=== PATIENT | female | born 1945 | race Caucasian/White ===

== ENCOUNTER 2017-05-14 20:21 | Emergency (ER) | payer MEDICARE, OTHER ==
[~2017-05-14] VITALS: Ht 157.5 cm; Wt 88.2 kg
[~2017-05-14 20:21] MED LIST: ACTONEL150 MG; ACTONEL150 MG PO; ACTONEL35 MG PO; ALENDRONATE SOD70 MG PO; BENADRYL25 MG PO; BENICAR HCT 401 EACH PO; CALCIUM CITRAT1 EAC8 PO; CEPHALEXIN500 MG PO; CLINDAMYCIN HC150 MG PO; DEPAKOTE500 MG PO; DIVALPROEX SOD500 M1 PO; ESTRADIOL0.5 MG VAGINAL; FIBER THERAPY1368 GM PO; FLUPHENAZINE HC10 MG PO; GLUCOPHAGE500 MG PO; INVEGA6 MG PO; METFORMIN HCL500 M1 PO; MOTRIN IB200 MG PO; NORCO 5-325 TA1 EACH PO; PALIPERIDONE ER6 MG PO; PRAVACHOL20 MG PO; PROPRANOLOL HCL10 MG PO; RISPERDAL1 MG PO; TRAMADOL HCL50 MG; TRAMADOL HCL50 MG PO; TYLENOL EXTRA500 MG PO; VITAMIN B12-FO1 EACH PO
[2017-05-14] MEDS ORDERED: OLMESARTAN-HCT1 EAC1 PO (20:37)
[2017-05-14] MEDS ORDERED: ALLOPURINOL300 MG PO (20:38)
== END 2017-05-15 01:24 | disposition home or self-care (01) ==
LOC: ED 20:21
DX: R51 Headache (principal); I10 Essential (primary) hypertension; E11.9 Type 2 diabetes mellitus without complications; F31.9 Bipolar disorder, unspecified; M50.30 Other cervical disc degeneration, unspecified cervical region; Z88.5 Allergy status to narcotic agent; Z88.8 Allergy status to other drugs, medicaments and biological substances; Z90.710 Acquired absence of both cervix and uterus; Z79.899 Other long term (current) drug therapy; Z79.84 Long term (current) use of oral hypoglycemic drugs; W18.30XA Fall on same level, unspecified, initial encounter; Y93.A1 Activity, exercise machines primarily for cardiorespiratory conditioning
CPT/HCPCS: 70450; 72125; 99284

== ENCOUNTER 2017-07-12 12:23 | Emergency (ER) | payer MEDICARE, OTHER ==
[~2017-07-12] VITALS: Ht 157.5 cm; Wt 88.2 kg
[~2017-07-12 12:23] MED LIST changes: +ALLOPURINOL300 MG PO; +OLMESARTAN-HCT1 EAC1 PO
== END 2017-07-12 14:18 | disposition home or self-care (01) ==
LOC: ED 12:23
DX: S93.402A Sprain of unspecified ligament of left ankle, initial encounter (principal); S83.92XA Sprain of unspecified site of left knee, initial encounter; F31.9 Bipolar disorder, unspecified; I10 Essential (primary) hypertension; E11.9 Type 2 diabetes mellitus without complications; Z88.5 Allergy status to narcotic agent; Z88.8 Allergy status to other drugs, medicaments and biological substances; Z79.899 Other long term (current) drug therapy; W01.0XXA Fall on same level from slipping, tripping and stumbling without subsequent striking against object, initial encounter
CPT/HCPCS: 73560; 73610; 99283

== ENCOUNTER 2017-07-14 14:33 | Emergency (ER) | payer MEDICARE, OTHER ==
[~2017-07-14] VITALS: Ht 157.5 cm; Wt 87.1 kg
== END 2017-07-14 17:49 | disposition home or self-care (01) ==
LOC: ED 14:33
DX: S16.1XXA Strain of muscle, fascia and tendon at neck level, initial encounter (principal); S00.93XA Contusion of unspecified part of head, initial encounter; I10 Essential (primary) hypertension; E11.9 Type 2 diabetes mellitus without complications; F31.9 Bipolar disorder, unspecified; Z90.710 Acquired absence of both cervix and uterus; Z88.5 Allergy status to narcotic agent; Z88.8 Allergy status to other drugs, medicaments and biological substances; Z79.899 Other long term (current) drug therapy; Z79.84 Long term (current) use of oral hypoglycemic drugs; W01.0XXA Fall on same level from slipping, tripping and stumbling without subsequent striking against object, initial encounter
CPT/HCPCS: 99282

== ENCOUNTER 2017-07-19 06:24 | Emergency (ER) | payer MEDICARE, OTHER ==
[~2017-07-19] VITALS: Ht 157.5 cm; Wt 87.1 kg
== END 2017-07-19 07:52 | disposition home or self-care (01) ==
LOC: ED 06:24
DX: S80.212A Abrasion, left knee, initial encounter (principal); M19.071 Primary osteoarthritis, right ankle and foot; I10 Essential (primary) hypertension; E11.9 Type 2 diabetes mellitus without complications; Z88.5 Allergy status to narcotic agent; Z88.8 Allergy status to other drugs, medicaments and biological substances; Z79.84 Long term (current) use of oral hypoglycemic drugs; Z79.899 Other long term (current) drug therapy; X58.XXXA Exposure to other specified factors, initial encounter
CPT/HCPCS: 73610; 99283

== ENCOUNTER 2019-07-07 16:50 | Emergency (ER) | payer MEDICARE, MEDICAID ==
[~2019-07-07] VITALS: Ht 157.5 cm; Wt 87.1 kg
[~2019-07-07 16:50] MED LIST changes: +ACETAMINOPHEN500 MG PO; +AMLODIPINE BESYL5 MG PO; +CITRUS CALCIUM +1 EA PO; +FIBER500 MG PO; +MELATONIN1 MG PO; +VITAMIN B122500 MC1 PO; +VITAMIN D-32000 UNIT PO
--- OUTSIDE RECORDS SUMMARY | 2019-07-07 16:52 | XMS ---
PreManage Notification: TRISTAN BLOOM Security Environmental Planner Events No recent Security Events currently on file CRITERIA MET - Group Notification - [facility] CARE PROVIDERS TYLER ROSE Internal Medicine 12/22/2018-Current PHONE: Unknown DR TYLER ROSE Primary Care Current PHONE: [phone] Zeeshan Galvin MD Primary Care Current PHONE: [phone] [facility]: 12/22/2018 Care Coordination: Mental health services are being provided by [facility].\T\nbsp; Please contact [facility] with mental health concerns.\T\nbsp; Regina/Rell Lockhart: \T\nbsp; Vishnu: [phone]. Care History Medical/Surgical 12/22/2018 [facility] - Patient is currently established with [facility]. If patient is seen in the ED during business hours. Please contact CHWs at [facility]. Care Recommendation: This patient has had 5 or more Emergency Department visits in the last 12 months.\T\nbsp; Patient requires education on the scope and purpose of the ED as an acute care provider not a Primary Care Provider and should not be utilized for chronic conditions.\T\nbsp; These are guidelines and the provider should exercise clinical judgment when providing care. 07/28/2017 [facility] Care Recommendation: This patient has had 5 or more Emergency Department visits in the last 12 months. Patient requires education on the scope and purpose of the ED as an acute care provider not a Primary Care Provider and should not be utilized for chronic conditions. If patient returns to ED please contact Community Health WorkerLaura at [phone]. These are guidelines and the provider should exercise clinical judgment when providing care. E.D. VISIT COUNT (12 [address] [facility] TOTAL 3 NOTE: Visits indicate total known visits. ED/UCC VISIT TRACKING (12 MO.) 07/07/2019 16:51 [facility] [place] TYPE: Emergency COMPLAINT: - MULTIPLE COMPLAINTS 12/23/2018 13:27 [facility] [place] TYPE: Emergency COMPLAINT: - HEADACHE/POSS BLOOD SUGAR PROBLEM DIAGNOSES: - Allergy status to analgesic agent status - Allergy status to narcotic agent status - detention (current) use of oral hypoglycemic drugs - Headache - Essential (primary) hypertension - Other [facility] (current) drug therapy - Tension-type headache, unspecified, not intractable - Bipolar disorder, unspecified - 1 Type 2 diabetes mellitus without complications - Allergy status to oth drug/meds/biol subst status 12/21/2018 18:08 [facility] [place] TYPE: Emergency COMPLAINT: - BLOOD PRESSURE LOW DIAGNOSES: - Weakness - Other buttermilk drier operator (current) drug therapy - Bipolar disorder, unspecified - Allergy status to oth drug/meds/biol subst status - Essential (primary) hypertension - 1 Type 2 diabetes mellitus without complications - Allergy status to narcotic agent status - detention (current) use of oral hypoglycemic drugs INPATIENT VISIT TRACKING (12 MO.) No inpatient visits to display in this time frame [id number]
== END 2019-07-07 19:09 | disposition home or self-care (01) ==
LOC: ED 16:50
DX: Z53.21 Procedure and treatment not carried out due to patient leaving prior to being seen by health care provider (principal)
CPT/HCPCS: 80053; 80176; 81001; 84443; 85025; G0480

== ENCOUNTER → 2019-07-26 | Emergency (ER) | payer MEDICARE, MEDICAID ==
[~2019-07-26] VITALS: Ht 157.5 cm; Wt 87.1 kg
[~2019-07-26] MED LIST changes: +CALCIUM CITRAT1 EA15 PO; +COZAAR50 MG PO; +CRANBERRY500 M3 PO; +FISH OIL 1,0001 EAC2 NG; +HEALTHY EYES T1 EACH; +HYDROCHLOROTH12.5 M1 PO; +TUMERIC
--- OUTSIDE RECORDS SUMMARY | 2019-07-26 12:56 | XMS ---
PreManage Notification: TRISTAN BLOOM Security Communications Administrator Events 1 event(s) in the past 18 months Most recent security events: Elopement at [facility] 07/07/2019 16:51 - Other Details: PATIENT LWBS CRITERIA MET - Group Notification - [facility] - Has Care Guidelines - [facility] - 2 Visits in 30 Days CARE PROVIDERS TYLER MC Internal Medicine 12/22/2018-Current PHONE: Unknown DR TYLER MC Primary Care Current PHONE: [phone] Zeeshan Galvin MD Primary Care Current PHONE: [phone] Guidelines Source: [facility] Guidelines Date: 12/22/2018 Care Coordination: Mental health services are being provided by [facility].\T\nbsp; Please contact [facility] with mental health concerns.\T\nbsp; Regina/Rell Lockhart: \T\nbsp; Vishnu: [phone]. Care History Medical/Surgical 07/09/2019 [facility] Patient being seen by CHW Elina Gr today for home visit for residential care placement.\T\nbsp; Follow up appointment scheduled for 07/23/[address] Mc 12/22/2018 [facility] - Patient is currently established with [facility]. If patient is seen in the ED during business hours. Please contact CHWs at [facility]. Care Recommendation: This patient has had 5 or more Emergency Department visits in the last 12 months.\T\nbsp; Patient requires education on the scope and purpose of the ED as an acute care provider not a Primary Care Provider and should not be utilized for chronic conditions.\T\nbsp; These are guidelines and the provider should exercise clinical judgment when providing care. 07/28/2017 [facility] Care Recommendation: This patient has had 5 or more Emergency Department visits in the last 12 months. Patient requires education on the scope and purpose of the ED as an acute care provider not a Primary Care Provider and should not be utilized for chronic conditions. If patient returns to ED please contact Community Health WorkerLaura at [phone]. These are guidelines and the provider should exercise clinical judgment when providing care. E.D. VISIT COUNT ([address] [facility] TOTAL [facility] NOTE: Visits indicate total known visits. ED/UCC VISIT TRACKING (12 MO.) 07/26/2019 12:53 [facility] [place] TYPE: Emergency COMPLAINT: - MEDICAL CLEARANCE, ALTERED LOC 07/07/2019 16:51 [facility] [place] TYPE: Emergency COMPLAINT: - MULTIPLE COMPLAINTS,LEFT WITHOUT BEING SEEN DIAGNOSES: - Proc/trtmt not crd out d/t pt lv bef seen by [facility] care prov 12/23/2018 13:27 [facility] OR TYPE: Emergency COMPLAINT: - HEADACHE/POSS BLOOD SUGAR PROBLEM DIAGNOSES: - Allergy status to analgesic agent status - Allergy status to narcotic agent status - exterminator helper (current) use of oral hypoglycemic drugs - Headache - Essential (primary) hypertension - Other jail (current) drug therapy - Tension-type headache, unspecified, not intractable - Bipolar disorder, unspecified - 1 Type 2 diabetes mellitus without complications - Allergy status to oth drug/meds/biol subst status 12/21/2018 18:08 [facility] TYPE: Emergency COMPLAINT: - BLOOD PRESSURE LOW DIAGNOSES: - Weakness - Other jail (current) drug therapy - Bipolar disorder, unspecified - Allergy status to oth drug/meds/biol subst status - Essential (primary) hypertension - 1 Type 2 diabetes mellitus without complications - Allergy status to narcotic agent status - [facility] (current) use of oral hypoglycemic drugs INPATIENT VISIT TRACKING (12 MO.) No inpatient visits to display in this time frame [id number]
== END ==
LOC: ED 12:52
DX: Z00.8 Encounter for other general examination (principal); I10 Essential (primary) hypertension; E11.9 Type 2 diabetes mellitus without complications; F32.9 Major depressive disorder, single episode, unspecified; Z88.5 Allergy status to narcotic agent; Z88.8 Allergy status to other drugs, medicaments and biological substances; Z79.899 Other long term (current) drug therapy; Z79.84 Long term (current) use of oral hypoglycemic drugs
CPT/HCPCS: 80053; 80176; 81001; 84443; 85025; 99285; G0480

== ENCOUNTER 2020-04-09 09:55 | Emergency (ER) | payer MEDICARE, OTHER ==
[~2020-04-09] VITALS: Ht 157.5 cm; Wt 87.1 kg
--- OUTSIDE RECORDS SUMMARY | 2020-04-09 09:58 | XMS ---
PreManage Notification: TRISTAN BLOOM Security Power System Dispatcher Events 1 event(s) in the past 18 months Most recent security events: Elopement at [facility] 07/07/2019 16:51 - Other Details: PATIENT LWBS CRITERIA MET - Group Notification - [facility] - Has Care Guidelines - [employer] CARE PROVIDERS Carlitos Hammer Frontload Driver/Respiratory Manager 03/07/2020-Current PHONE: [phone] TYLER MC Internal Medicine 12/22/2018-Current PHONE: Unknown Guidelines Source: [facility] [place] Guidelines Date: 12/22/2018 Care Coordination: Mental health services are being provided by [facility] [facility]T\nbsp; Please contact [facility] with mental health concerns.\T\nbsp; Regina/Rell Lockhart: \T\nbsp; Vishnu: [phone]. Care History Medical/Surgical 07/30/2019 [facility] Patient scheduled to establish care with Dr. Garcia on 08/02/2019 07/09/2019 [facility] Patient being seen by CHW Elina Gr today for home visit for residential care placement.\T\nbsp; Follow up appointment scheduled for 07/23/[address] Mc 12/22/2018 [facility] - Patient is currently established with [facility]. If patient is seen in the ED during business hours. Please contact CHWs at [facility]. Care Recommendation: This patient has had [...] care. E.D. VISIT COUNT (12 MO.) 3 [facility]. TOTAL 3 NOTE: Visits indicate total known visits. ED/UCC VISIT TRACKING (12 MO.) 04/09/2020 09:56 [facility] [place] TYPE: Emergency COMPLAINT: - ALTERED LOC 07/26/2019 12:53 [facility] TYPE: Emergency COMPLAINT: - MEDICAL CLEARANCE, ALTERED LOC DIAGNOSES: - Major depressive disorder, single episode, unspecified - Type 2 diabetes mellitus without complications - Allergy status to narcotic agent - Other long-term (current) drug therapy - Essential (primary) hypertension - Allergy status to other drugs, medicaments and biological substances - Encounter for other general examination - assistant terminal manager (current) use of oral hypoglycemic drugs 07/07/2019 16:51 [facility] TYPE: Emergency COMPLAINT: - MULTIPLE COMPLAINTS,LEFT WITHOUT BEING SEEN DIAGNOSES: - Procedure and treatment not carried out due to patient leaving prior to being seen by health care provider INPATIENT VISIT TRACKING (12 MO.) 07/27/2019 16:09 [facility] [place] TYPE: Group Home COMPLAINT: - BIPOLAR D/O DIAGNOSES: - Bipolar disorder, unspecified [email or web address]
[2020-04-09] MEDS ORDERED: CITALOPRAM HBR20 MG PO (10:30)
[2020-04-09] MEDS ORDERED: ACID REDUCER20 MG PO (10:31)
[2020-04-09] MEDS ORDERED: DITROPAN XL5 MG PO (10:32)
[2020-04-09] MEDS ORDERED: ATIVAN1 MG PO (10:33)
[2020-04-09] MEDS ORDERED: MIRALAX17 GM PO (10:33)
== END 2020-04-09 14:15 | disposition home or self-care (01) ==
LOC: ED 09:55
DX: F31.9 Bipolar disorder, unspecified (principal); I10 Essential (primary) hypertension; E11.9 Type 2 diabetes mellitus without complications; Z88.5 Allergy status to narcotic agent; Z88.8 Allergy status to other drugs, medicaments and biological substances; Z79.899 Other long term (current) drug therapy; R41.0 Disorientation, unspecified
CPT/HCPCS: 80053; 80164; 81001; 85025; 99285

== ENCOUNTER 2020-08-07 12:03 | Emergency (ER) | payer MEDICARE, OTHER ==
[~2020-08-07] VITALS: Ht 157.5 cm; Wt 87.1 kg
[~2020-08-07 12:03] MED LIST changes: +ACID REDUCER20 MG PO; +ATIVAN1 MG PO; +CITALOPRAM HBR20 MG PO; +DITROPAN XL5 MG PO; +MIRALAX17 GM PO
[2020-08-07] MEDS ORDERED: FISH OIL 1,0001 EAC2 NG (12:36)
[2020-08-07] MEDS ORDERED: OXCARBAZEPINE150 MG PO (12:37)
--- OUTSIDE RECORDS SUMMARY | 2020-08-11 14:43 | XMS ---
PreManage Notification: TRISTAN BLOOM Security Internet Marketing Intern Events 1 event(s) in the past 18 months Most recent security events: Elopement at [facility] 07/07/2019 16:51 - Other Details: PATIENT LWBS CRITERIA MET - Group Notification - [facility] - Has Care Guidelines CARE PROVIDERS Krysten Cruz Drying Equipment Operator/School Crossing Guard 07/28/2020-Current PHONE: [phone] TYLER MC Internal Medicine 12/22/2018-Current PHONE: Unknown Care Guidelines exist for the following facilities: [facility] ( 07/14/2020 ) Care History Medical/Surgical 07/30/2019 [facility] Patient scheduled to establish care with Dr. Garcia on 08/02/2019 07/09/2019 [facility] Patient being seen by CHW Elina Gr today for home visit for residential care placement.\T\nbsp; Follow up appointment scheduled for 07/23/[address] Mc 12/22/2018 [facility] - Patient is currently established with [facility]. If patient is seen in the ED during business hours. Please contact CHWs at [facility]. Care Recommendation: This patient has had 5 [...] care. E.D. VISIT COUNT (12 MO.) 3 [facility]. TOTAL 3 NOTE: Visits indicate total known visits. ED/UCC VISIT TRACKING (12 MO.) 08/07/2020 12:04 [facility] TYPE: Emergency COMPLAINT: - ALTERED LOC 05/15/2020 21:36 [facility] TYPE: Emergency COMPLAINT: - ALTERED MENTAL STATUS DIAGNOSES: - Essential (primary) hypertension - Allergy status to narcotic agent - Type 2 diabetes mellitus without complications - Bipolar disorder, unspecified - Allergy status to other drugs, medicaments and biological substances - Allergy status to other drugs, medicaments and biological substances - Other ocean transportation intermediary (current) drug therapy - Delusional disorders - Allergy status to narcotic agent 04/09/2020 09:56 [facility] [place] TYPE: Emergency COMPLAINT: - ALTERED LOC DIAGNOSES: - Type 2 diabetes mellitus without complications - Allergy status to other drugs, medicaments and biological substances - Other ocean transportation intermediary (current) drug therapy - Essential (primary) hypertension - Disorientation, unspecified - Allergy status to narcotic agent - Bipolar disorder, unspecified INPATIENT VISIT TRACKING (12 MO.) No inpatient visits to display in this time frame [id number]
== END 2020-08-19 08:56 | disposition home or self-care (01) ==
LOC: ED 12:03
DX: F29 Unspecified psychosis not due to a substance or known physiological condition (principal); Z20.822 Contact with and (suspected) exposure to COVID-19; I10 Essential (primary) hypertension; E11.9 Type 2 diabetes mellitus without complications; Z88.5 Allergy status to narcotic agent; Z88.8 Allergy status to other drugs, medicaments and biological substances; Z79.899 Other long term (current) drug therapy
CPT/HCPCS: 80048; 80053; 80176; 81001; 83735; 84443; 85025; 99285; C9803; J0696; J2060; J3486; J7030; U0003